=== PATIENT | male | born 2000 | race Caucasian/White ===

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

== ENCOUNTER 2021-02-13 10:46 | Outpatient (RCR) | payer OTHER, SELFPAY | END 2021-04-16 23:59 | LOC: IMMUN 10:46 | PROVIDERS: PCP Family Medicine; Visit Provider Family Medicine | DX: Z23 Encounter for immunization (principal) | CPT/HCPCS: 0001A; 0002A; 91300 ==

== ENCOUNTER → 2021-06-05 09:04 | Outpatient (CLI) | payer OTHER, SELFPAY ==
[2021-06-05 10:14] LABS: Hematocrit 42.1 % (40-54); Hemoglobin 14.3 g/dL (13.0-16.5); Mean Corpuscular Hgb 30.3 pg (27.0-32.0); Mean Corpuscular Volume 89.2 fL (80-94); Mean Platelet Vol. 10.3 fl (6.2-12.0); Platelet Count 220 K/mm3 (150-450); RBC Distribution Width CV 11.5 % (11.6-14.6); RBC Distribution Width SD 37.5 fl (35.1-43.9); Red Blood Count 4.72 M/mm3 (4.6-6.2)
[2021-06-05 10:37] LABS: Anion Gap 4 (5-15); BUN 9 mg/dL (7-18); BUN/Creat Ratio 10.3 RATIO (10-20); Calcium,Total 9.2 mg/dL (8.5-10.1); Chloride 104 mmol/L (98-107); Creatinine, Serum 0.88 mg/dL (0.70-1.30); EST Glomerular Filtration Rate 119 mL/min (>60); Est Glom Filt Rate - Afr Amer 144 mL/min (>60); Glucose 72 mg/dL (74-106); Iron 80 ug/dL (65-175); Magnesium 2.2 mg/dL (1.6-2.6); Potassium 3.9 mmol/L (3.5-5.1); Sodium Level 139 mmol/L (136-145); Thyroid Stim Hormone (TSH) 1.57 uIU/mL (0.358-3.74)
[2021-06-05 11:20] LABS: Vitamin B12 1035 pg/mL (211-911)
== END ==
PROVIDERS: PCP Family Medicine; Referring Provider Family Medicine; Visit Provider Family Medicine
DX: R68.82 Decreased libido (principal); R55 Syncope and collapse
CPT/HCPCS: 36415; 80048; 82306; 82607; 83540; 83735; 84403; 84443; 85027

== ENCOUNTER → 2021-11-04 13:36 | Outpatient (CLI) | payer OTHER, SELFPAY | PROVIDERS: PCP Family Medicine; Referring Provider Physician Assistant Surgical; Visit Provider Physician Assistant Surgical | DX: Z11.52 Encounter for screening for COVID-19 (principal) | CPT/HCPCS: 87635; U0005; U0003 ==

== ENCOUNTER → 2022-06-03 | Outpatient (CLI) | payer OTHER, SELFPAY ==
[2022-06-03 19:53] LABS: Vitamin D,25 Hydroxy 46.6 ng/mL
== END | disposition home or self-care (01) ==
LOC: MFPLAB 15:09
PROVIDERS: PCP Family Medicine; Referring Provider Family Medicine; Visit Provider Family Medicine
DX: E55.9 Vitamin D deficiency, unspecified (principal); R79.89 Other specified abnormal findings of blood chemistry
CPT/HCPCS: 36415; 82306; 84403

== ENCOUNTER → 2022-11-04 | Outpatient (CLI) | payer OTHER, SELFPAY ==
[2022-11-04 08:51] LABS: Hematocrit 45.5 % (40-54); Hemoglobin 15.2 g/dL (13.0-16.5); Mean Corp Hgb Conc 33.4 g/dL (32-36); Mean Corpuscular Hgb 30.2 pg (27.0-32.0); Mean Corpuscular Volume 90.3 fL (80-94); Mean Platelet Vol. 9.5 fl (6.2-12.0); Platelet Count 276 K/mm3 (150-450); RBC Distribution Width CV 11.9 % (11.6-14.6); Red Blood Count 5.04 M/mm3 (4.6-6.2); White Blood Count 5.8 K/mm3 (4.4-11.0)
[2022-11-04 09:04] LABS: Anion Gap 4 (5-15); BUN 17 mg/dL (7-18); BUN/Creat Ratio 15.3 RATIO (10-20); Calcium,Total 9.5 mg/dL (8.5-10.1); Chloride 104 mmol/L (98-107); Creatinine, Serum 1.11 mg/dL (0.70-1.30); EST Glomerular Filtration Rate 89 mL/min (>60); Est Glom Filt Rate - Afr Amer 108 mL/min (>60); Glucose 95 mg/dL (74-106); Potassium 4.2 mmol/L (3.5-5.1); Sodium Level 139 mmol/L (136-145)
--- NOTE | 2022-11-05 16:55 | TILTTABLE_ITS ---
Staff Staff: Amberly Guerrero and Mariajose Bernal Summary Protocol: 70 Degree Upright Tilt Pre Test Resting HR: 75 Pre Test Resting BP: 119/69 Minimum Test HR: 63 Maximum Test HR: 146 Minimum Test BP: 0/0 Maximum Test BP: 120/77 Reason for Test Termination: Syncope Physician Tilt Table Report Patient's Physicians Primary Care Physician: Moody Davila Tricot Knitting Machine Operator: Pawel Moody Indications/Diagnosis: Dizziness/lightheadedness Procedure Comments: The patient was brought to the tilt table laboratory and laid supine on the tilt table. The patient was awake and alert and warm and dry. The baseline heart rate was 75 bpm with a baseline blood pressure 119/69 mmHg. The cardiac rhythm was normal sinus rhythm. The patient was placed in the 70 degree upright tilt table position for approximately 23 minutes. The patient was alert and oriented and warm and dry and subsequently became unresponsive. The initial heart rate was 114 bpm with a blood pressure 128/71 mmHg. The patient's heart rate was noted to increase to 146 bpm with a blood pressure 107/62 mmHg. The patient had complaints of dizziness, nausea, heart pounding, pressure in the legs, and sweaty palms. Status post approximately 20 minutes in the 70 degree upright tilt table position the patient subsequently received nitroglycerin 0.4 mg sublingual x1. The patient was subsequently noted to have a decline in his heart rate to 63 bpm and a decline in his blood pressure to being undetectable. The cardiac rhythm was noted to remain a sinus rhythm with a rare PVC and subsequently was noted to increase to a sinus tachycardia with rare PVC and then declined to a sinus bradycardia.? The cardiac rhythm subsequently returned to a normal sinus rhythm. The patient was reported as appearing pale, diaphoretic, and complaining of nausea. The patient was noted to become unresponsive. The patient was reported as demonstrating posturing activity, tremors, body cramping, jaw clenching, and slurred speech. The patient was subsequently returned to the supine position. The patient was monitored in the supine position and was noted to appear pale but alert and oriented and warm to the touch. The heart rate returned to 113 bpm with a blood pressure 107/57 mmHg. the cardiac rhythm remained sinus rhythm. The patient was subsequently noted to appear more relaxed with respect to upper and lower extremities and the speech became clear. The patient continue to be monitored with a concluding heart rate of 89 bpm and a blood pressure 106/57 mmHg. The patient was alert and oriented and warm and dry. The cardiac rhythm remained sinus rhythm. The patient was subsequently released from the tilt table laboratory. 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 This note was generated using a voice recognition system and there may be incorrect words, spelling or punctuation that were not noted when reviewing the office note prior to saving.
[2022-11-05 17:04] VITALS: BP 0/0; BP 119/69; BP 120/77
== END | disposition home or self-care (01) ==
LOC: CVS 08:41
PROVIDERS: PCP Family Medicine; Referring Provider Family Medicine; Visit Provider Family Medicine
DX: R55 Syncope and collapse (principal)
CPT/HCPCS: 36415; 80048; 85027; 93660; J7040; A4216